=== PATIENT | male | born 1935 | race Caucasian/White ===

== ENCOUNTER → 2017-08-12 | Day surgery (SDC) | payer OTHER, MEDICARE ==
[~2017-08-12] VITALS: Ht 177.8 cm; Wt 108.9 kg
[~2017-08-12] MED LIST: MERCAPTOPURINE50 M1 PO; PRADAXA150 M1 PO; TOPROL XL100 M1 PO; ZOCOR40 M1 PO
--- NOTE | 2017-08-12 10:26 | Operative Report ---
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 A lid speculum was placed to retract the lids. The case was begun by making a temporal incision with a 2.4 mm keratome. The eye was stabilized with a Villa ring during this incision. 1 mL of non-preserved lidocaine was introduced into the anterior chamber to provide anesthesia. The anterior chamber was then filled and deepened with viscoelastic. A curvilinear capsulorrhexis was achieved using a 30-gauge needle and is a cystotome and capsulorrhexis was finished using a Utrata forceps. A second or paracentesis incision was made temporally with a 1 mm MVR blade. The lens was then hydrodissected with balanced salt solution and found to be rotatable. The lens was emulsified using phacoemulsification and a modified four-quadrant cracking technique. The residual cortical material was removed using automated irrigation and aspiration and as much of the anterior capsular rim was cleaned as well as possible. The posterior capsule was cleaned first with the automated machine on a low setting and then manually with a Cristiano squeegee. The capsular bag was deepened with viscoelastic. The lens a Technis multifocal ZLB00 23.5 Diopter placed into the bag under direct visualization and rotated so that the haptics were at 12 and 6:00. Viscoelastic was then removed from the eye by flushing it out and then by automated irrigation and aspiration. The eye was pressurized to a normal tone. 1/10 of a cc of cefuroxime solution was introduced into the anterior chamber to provide antibiotic prophylaxis. The wounds were sealed by hydrating the stroma adjacent to them and the eye was left at a proper tone after the wounds were checked and found not to be leaking. The lid speculum was removed from the orbit. Antibiotic and steroid drops were placed on the eye and then the eye was shielded. Monitoring equipment was removed from the patient and the patient was removed from the operative suite to the holding area. The patient tolerated the procedure well and will be seen in the office tomorrow.
== END ==
LOC: STS 01:27
DX: H25.89 Other age-related cataract (principal); H52.4 Presbyopia; I48.91 Unspecified atrial fibrillation; Z79.01 Long term (current) use of anticoagulants; I10 Essential (primary) hypertension
CPT/HCPCS: J2250; V2632; V2788-GY

== ENCOUNTER → 2017-09-24 | Day surgery (SDC) | payer OTHER, MEDICARE ==
[~2017-09-24] VITALS: Ht 177.8 cm; Wt 108.9 kg
--- NOTE | 2017-09-24 09:14 | Operative Report ---
Operative/Inv Procedure Report Surgery Date: 09/24/17 Name of Procedure: Exchange intraocular lens right eye Pre-Operative Diagnosis: Problem with intraocular lens right eye 20/70 vision Post-Operative Diagnosis: Same Estimated Blood Loss: none Surgeon/Planishing Press Operator: Marlon CERVANTES,Renny Shafer Anesthesia: local monitored anesthesi Complications: None Operative/Procedure Note Note: Patient had had cataract surgery with lens implantation on 08/12/2017. This went uneventfully however the patient did not see well because despite multiple measurements of the eye prior to surgery (3) the lens power was incorrect leaving the patgient with 20/70 vision and unhappy with the result. After waiting 6 weeks he was offered the option to have the lens exchanged. He agreed and was consented for this. The patient was brought to the operating room. Standard monitoring equipment was attached and the patient was prepped and draped in the usual fashion for sterile intraocular surgery. The case was begun by reopening the temporal main incision with a 2.4 mm millimeters keratome. The anterior chamber was anesthetized with non-preserved lidocaine and then viscoelastic was used to deepen the chamber as well as to help separate the lens from both the anterior and posterior capsular leaflets. Once the lens was freed up it was cut in half and removed in sections from the eye. The capsular bag was preserved it was reopened and re-deepened using viscoelastic and then the lens a ZLB00 24.5 diopter was placed into the capsular bag under direct visualization. The remaining viscoelastic was removed using automated irrigation and aspiration and then the wounds were re-sealed using balanced salt solution after a tenth of a cc of cefuroxime was placed intra-ocularly for antibiotic prophylaxis. The eye was left at a good pressure. The lid speculum was removed and the eye was shielded over antibiotic and steroid drops. The patient will be seen in the office tomorrow
== END ==
LOC: STS 03:25
DX: T85.898A Other specified complication of other internal prosthetic devices, implants and grafts, initial encounter (principal); Y83.8 Other surgical procedures as the cause of abnormal reaction of the patient, or of later complication, without mention of misadventure at the time of the procedure; I10 Essential (primary) hypertension; I48.91 Unspecified atrial fibrillation; Z79.01 Long term (current) use of anticoagulants
CPT/HCPCS: J2250

== ENCOUNTER → 2017-10-21 | Day surgery (SDC) | payer OTHER, MEDICARE ==
[~2017-10-21] VITALS: Ht 177.8 cm; Wt 104.3 kg
--- NOTE | 2017-10-21 11:42 | Operative Report ---
Operative/Inv Procedure Report Surgery Date: 10/21/17 Name of Procedure: Cataract extraction lens implantation correction of presbyopia left eye Pre-Operative Diagnosis: Age related cataract and presbyopia left eye 20/30 vision 20/60 glare vision Post-Operative Diagnosis: Same Estimated Blood Loss: none Surgeon/Clinical Transformation Specialist: Renny Mason MD Anesthesia: local monitored anesthesi Complications: None Operative/Procedure Note Note: The patient was brought to the operating room standard monitoring equipment was attached the patient was prepped and draped in the usual fashion for intraocular surgery. A lid speculum was placed to retract the lids. The case was begun by making 1 partial-thickness corneal relaxing incision at 80. A temporal incision with a 2.4 mm keratome. The eye was stabilized with a Villa ring during this incision. 1 mL of non-preserved lidocaine was introduced into the anterior chamber to provide anesthesia. The anterior chamber was then filled and deepened with viscoelastic. A curvilinear capsulorrhexis was achieved using a 30-gauge needle and is a cystotome and capsulorrhexis was finished using a Utrata forceps. A second or paracentesis incision was made temporally with a 1 mm MVR blade. The lens was then hydrodissected with balanced salt solution and found to be rotatable. The lens was emulsified using phacoemulsification and a modified four-quadrant cracking technique. The residual cortical material was removed using automated irrigation and aspiration and as much of the anterior capsular rim was cleaned as well as possible. The posterior capsule was cleaned first with the automated machine on a low setting and then manually with a Cristiano squeegee. The capsular bag was deepened with viscoelastic. The lens a Technis multifocal ZLB00 24.0 Diopter placed into the bag under direct visualization and rotated so that the haptics were at 12 and 6:00. Viscoelastic was then removed from the eye by flushing it out and then by automated irrigation and aspiration. The eye was pressurized to a normal tone. 1/10 of a cc of cefuroxime solution was introduced into the anterior chamber to provide antibiotic prophylaxis. The wounds were sealed by hydrating the stroma adjacent to them and the eye was left at a proper tone after the wounds were checked and found not to be leaking. The lid speculum was removed from the orbit. Antibiotic and steroid drops were placed on the eye and then the eye was shielded. Monitoring equipment was removed from the patient and the patient was removed from the operative suite to the holding area. The patient tolerated the procedure well and will be seen in the office tomorrow.
== END ==
LOC: STS 02:03
DX: H25.89 Other age-related cataract (principal); H52.4 Presbyopia; I48.91 Unspecified atrial fibrillation; Z79.01 Long term (current) use of anticoagulants; I10 Essential (primary) hypertension; K51.90 Ulcerative colitis, unspecified, without complications
CPT/HCPCS: J2250; V2632; V2788-GY